=== PATIENT | male | born 1960 | race Caucasian/White ===

== ENCOUNTER → 2016-09-02 | Outpatient (CLI) | payer OTHER ==
[2016-09-02 09:24] LABS: ABG Base Excess 3.2 mmol/L; ABG HCO3 28 mmol/L (21-25); ABG PCO2 45 mmHg (35-45); ABG PH 7.41 (7.35-7.45); ABG PO2 77 mmHg (83-108); ABG TCO2 29 mmol/L (19-24)
[2016-09-02 09:29] LABS: CH 28.3; CHCM 31.1; HCT 47.5 % (39.0-53.0); HDW 2.91; HGB 14.9 gm/dL (13.0-17.5); Hypochromasia Slight; MCH 28.6 pg (25.0-35.0); MCHC 31.4 g/dL (31.0-37.0); MCV 91.3 fL (80.0-100.0); Mean Platelet Volume 7.5; RDW 15.8 % (11.5-15.5); WBC 8.5 k/uL (3.8-10.6)
--- NOTE | 2016-09-02 10:05 | CT ---
EXAMINATION TYPE: CT chest w con DATE OF EXAM: 09/02/2016 9:21 AM COMPARISON: 05/31/2016 HISTORY: 56-year-old male Shortness of Breath TECHNIQUE: Contiguous axial scanning of the chest after the administration of 100 mL of Omnipaque 300 . Coronal/sagittal reconstructions performed. CT DLP: 369.8mGycm. Automatic exposure control utilized for a dose reduction. FINDINGS: Heart is upper limits of normal in size without pericardial effusion. Coronary vessel calcifications are present and are remarkable for coronary artery disease. Ascending aorta phase mildly aneurysmal at 4.1 cm. Previous measurement was 3.9 cm. There is conventi onal arterial suppression anatomy. Scattered small mediastinal lymph nodes are seen. No thoracic lymphadenopathy by CT size criteria. There is mild centrilobular emphysema with a continued small pleural effusions though decreased in si ze on the left. There are persistent bands of opacity in the basilar left lower lobe. Large caliber to the main right and left pulmonary arteries at 3.0 and 2.6 cm, respectively, suggesti ng underlying pulmonary arterial hypertension. The left hemidiaphragm remains elevated. Patchy opacity medial right middle lobe is unchanged suggesting atelectasis or scarring. 2 subcentimeter hypodensities right hepatic lobe too small for accurate CT characterization, probable cysts. Focal fat stranding anterior to the gastric antrum likely postsurgical. Some nodular enhancing tissue in the left subphrenic region probably posttraumatic splenules, axial image 44. Patient is status po st splenectomy with improvement in the fluid and fat stranding in the left upper quadrant. Bones: Well healed fractures of the left posterior and posterolateral 10th and 11th ribs with the 10t h rib fracture being segmental. No osseous destructive process. IMPRESSION: 1. Continued elevation of the left hemidiaphragm with similar patchy left basilar opacity, probably r epresenting scarring and atelectasis. 2. Small bilateral pleural effusions, decreased on the left. 3. Status post splenectomy with residual but decreasing strandy densities in the left subphrenic latanya on and left upper quadrant. Probably gradually involuting postsurgical and posttraumatic changes. Daniel e enhancing nodules below the left hemidiaphragm probably represent residual splenic tissue. 4. Mildly aneurysmal ascending aorta at 4.1 cm and pulmonary arterial hypertension. 5. The left 10th and 11th rib fractures are now well healed.
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
== END | disposition home or self-care (01) ==
LOC: RADCTMAIN 08:34
PROVIDERS: ATTEND Internal Medicine
DX: J90 Pleural effusion, not elsewhere classified (principal); J98.6 Disorders of diaphragm; R91.8 Other nonspecific abnormal finding of lung field; I71.2 Thoracic aortic aneurysm, without rupture; I27.2 Other secondary pulmonary hypertension; Z90.81 Acquired absence of spleen; D64.9 Anemia, unspecified; R06.02 Shortness of breath
CPT/HCPCS: 36600; 82805; 85027; 76000; 71260; Q9967

== ENCOUNTER → 2020-02-17 | Outpatient (CLI) | payer MEDICARE, OTHER ==
--- NOTE | 2020-02-17 11:04 | MR ---
EXAMINATION TYPE: MR knee LT wo con DATE OF EXAM: 02/17/2020 COMPARISON: Plain film 01/28/2020 HISTORY: L knee pain TECHNIQUE: Multiplanar, multisequence imaging of the left knee is performed without IV contrast. FINDINGS: MEDIAL MENISCUS: Posterior horn of the medial meniscus shows linear increased signal which extends to the undersurface and into the body and shows a somewhat stellate configuration. LATERAL MENISCUS: Anterior and posterior horns are intact without tear. CRUCIATE LIGAMENTS: The anterior and posterior cruciate ligaments are intact and unremarkable. COLLATERAL LIGAMENTS: The medial collateral ligament and lateral collateral ligament complex are inta ct and unremarkable. EXTENSOR MECHANISM: Visualized quadriceps and patellar tendons are intact. EFFUSION: No significant suprapatellar joint effusion. POPLITEAL CYST: No popliteal/morejon cyst. TRICOMPARTMENT SPACES: Maintained CARTILAGE: Well-preserved BONE MARROW SIGNAL: No focal abnormal marrow signal is appreciated. OTHER: No additional significant abnormality is appreciated. IMPRESSION: Tear the posterior horn of the medial meniscus.
== END | disposition home or self-care (01) ==
LOC: RADMRIMAIN 07:25
PROVIDERS: ATTEND Orthopaedic Surgery
DX: S83.242A Other tear of medial meniscus, current injury, left knee, initial encounter (principal)

== ENCOUNTER → 2020-03-05 | Outpatient (CLI) | payer MEDICARE, OTHER ==
[2020-03-05 09:06] LABS: Basophils % (A) 0 %; Eosinophils # (A) 0.2 k/uL (0-0.7); Eosinophils % (A) 2 %; HCT 46.8 % (39.0-53.0); HGB 15.2 gm/dL (13.0-17.5); Lymphocytes # (A) 1.6 k/uL (1.0-4.8); Lymphocytes % (A) 23 %; MCH 31.3 pg (25.0-35.0); MCHC 32.5 g/dL (31.0-37.0); MCV 96.1 fL (80.0-100.0); Mean Platelet Volume 7.1; Monocytes # (A) 0.5 k/uL (0-1.0); Monocytes % (A) 8 %; Neutrophils # (A) 4.5 k/uL (1.3-7.7); Neutrophils % (A) 64 %; Platelet Count 319 k/uL (150-450); RBC 4.87 m/uL (4.30-5.90); RDW 13.1 % (11.5-15.5)
[2020-03-05 09:14] LABS: Potassium 4.4 mmol/L (3.5-5.1)
== END | disposition home or self-care (01) ==
LOC: LABPAT 07:59
PROVIDERS: ATTEND Orthopaedic Surgery
DX: Z01.818 Encounter for other preprocedural examination (principal); M23.92 Unspecified internal derangement of left knee
CPT/HCPCS: 36415; 80051; 85025; 93005

== ENCOUNTER 2020-03-12 11:43 | Day surgery (SDC) | payer MEDICARE, OTHER ==
[2020-03-06 14:35] VITALS: BMI 31.6
--- NOTE | 2020-03-11 16:59 | HP ---
HISTORY AND PHYSICAL DATE OF SURGERY: 03/12/2020 Noe Oakes is a 60-year-old patient seen with progressive left knee pain. We discussed options for treatment. He elected to proceed with arthroscopy. Consent was obtained. PAST MEDICAL HISTORY: Hyperlipidemia, gastroesophageal reflux disease, asthma. PAST SURGICAL HISTORY: Noncontributory. DAILY MEDICATIONS: Aspirin, omeprazole, pravastatin, Ventolin inhaler. ALLERGIES: NONE. SOCIAL HISTORY: He denies tobacco use. PHYSICAL EVALUATION OF THE LEFT KNEE: His range of motion is negative 3 to 120. He has a mild effusion present. Tenderness, medial joint line. Positive medial Favian's. Ligaments stable. Hip rotation without pain. Distal neurovascular exam intact. RADIOGRAPHS: Radiographs of the left knee revealed mild osteoarthritic changes. An MRI of the left knee revealed a medial meniscal tear. IMPRESSION: 1. Internal derangement of the left knee with medial meniscal tear. 2. Hyperlipidemia. 3. Gastroesophageal reflux disease. 4. Asthma. PLAN: Left knee arthroscopy with partial meniscectomy and partial synovectomy and debridement. MMODL / IJN: [id number] /
[~2020-03-12 11:43] MED LIST: LACTATED RINGERS 1,000 ML IV SCH; ONDANSETRON 4 MG/2 ML VIAL IVP ONE; fentaNYL (PF) 50 MCG/ML 2 ML AMP IV PRN
[2020-03-12] MEDS ORDERED: LIDOCAINE 1% (10MG/ML) FOR IV START IV ONE (12:20)
[2020-03-12] MEDS ORDERED: DEXAMETHASONE SOD PHOSPHATE 10 MG/ML 1 ML VIAL IV ONE (12:25)
[2020-03-12] MEDS ORDERED: ONDANSETRON 4 MG/2 ML VIAL ONE (12:35)
[2020-03-12] MEDS ORDERED: PROPOFOL 10 MG/ML 20 ML VIAL IV ONE (13:13)
[2020-03-12] MEDS ORDERED: fentaNYL (PF) 50 MCG/ML 2 ML AMP ONE (13:13)
[2020-03-12] MEDS ORDERED: MIDAZOLAM 2 MG/2 ML VIAL ONE (13:13)
[2020-03-12] MEDS ORDERED: BUPIVACAIN-EPI 0.25%-1:200,000 30 ML VIAL INTRAARTIC ONE (13:18)
--- NOTE | 2020-03-12 14:09 | P.OP ---
Date of Procedure: 03/12/20 Preoperative Diagnosis: Internal derangement left knee Postoperative Diagnosis: 1. Tear lateral meniscus left knee 2. Grade 2 chondromalacia medial femoral condyle left knee 3. Reactive synovitis medial, lateral and suprapatellar compartments left knee Procedure(s) Performed: 1. Arthroscopic partial lateral meniscectomy left knee 2. Arthroscopic chondroplasty medial femoral condyle left knee 3. Arthroscopic partial synovectomy medial, lateral and suprapatellar compartments left knee Anesthesia: local, spinal Surgeon: Henrik De Souza Estimated Blood Loss (ml): 6 Pathology: none sent Condition: stable Disposition: PACU Indications for Procedure: 60-year-old patient seen with progressive left knee pain. After treatment options were discussed, he elected to proceed with arthroscopy. Operative Findings: See description of procedure Description of Procedure: Patient was taken to the operative suite. Patient underwent a general anesthetic by the department of anesthesia. Patient was given preoperative antibiotics. The left lower extremity was placed in a well-padded arthroscopic leg sullivan. The left leg was prepped and draped in the normal sterile orthopedic fashion. A lateral parapatellar and suprapatellar incision was made. Trochars were inserted. Arthroscopy was initiated. Suprapatellar pouch revealed diffuse thick reactive synovitis. The patellofemoral joint appeared to articulate congruently. There with grade 3/4 chondromalacia of the patella with no osteochondral tears present. The scope was guided into the medial gutter. No loose bodies or plica were identified. The scope was then guided into the medial compartment. A medial parapatellar incision was made. Trocar inserted followed by probe. There were grade 2 chondromalacia changes along the weightbearing surface medial femoral condyle some osteochondral flap tears present. There was thick reactive synovitis anteriorly. The meniscus was probed and found to be stable. I performed a chondroplasty of the medial femor al condyle. I performed a partial synovectomy decompressing reactive synovitis. The residual osteochondral surface appears stable. There was good decompression of synovitis. Scope and probe were then guided into the intercondylar notch. Cruciates were identified, probed and found to be stable. The scope and probe were then guided into lateral compartment. There was a radial tear posterior horn lateral meniscus. There was no significant chondromalacia in the lateral compartment. There was some reactive synovitis anteriorly. I performed a partial lateral meniscectomy getting down to stable meniscal tissue. I performed a partial synovectomy decompressing reactive synovitis. The residual meniscus was stable. There was good decompression of synovitis. The scope was in guided back into the suprapatellar compartment. I introduced a motorized shaver into the suprapatellar compartment. I debrided some piecemeal fragments of meniscus I encountered. I performed a partial synovectomy decompressing reactive synovitis. The shaver was removed. There was good decompression of synovitis. I took more look on the entire knee, no residual debris. Instruments were now removed from the joint. The joint was infiltrated with .25% Marcaine. Steri-Strips were applied to the portal sites. Sterile dressings were applied. The patient was placed into a LUKAS hose. No tourniquet was utilized. The patient was awakened, transferred to a bed and taken to recovery stable satisfactory condition.
[2020-03-12 14:13] VITALS: TEMP 97.6
[2020-03-12 16:27] VITALS: BP 147/65; PULSE 85; RESP 20
== END 2020-03-12 17:54 | disposition home or self-care (01) ==
LOC: OR 11:43
PROVIDERS: ATTEND Orthopaedic Surgery
DX: S83.282A Other tear of lateral meniscus, current injury, left knee, initial encounter (principal); X58.XXXA Exposure to other specified factors, initial encounter; M94.262 Chondromalacia, left knee; M65.9 Synovitis and tenosynovitis, unspecified; E78.5 Hyperlipidemia, unspecified; K21.9 Gastro-esophageal reflux disease without esophagitis; J45.909 Unspecified asthma, uncomplicated; J98.6 Disorders of diaphragm; N40.0 Benign prostatic hyperplasia without lower urinary tract symptoms; Z98.890 Other specified postprocedural states; Z79.82 Long term (current) use of aspirin; Z79.899 Other long term (current) drug therapy
CPT/HCPCS: 29881; J2250; J1100; J0690; J2405; J3010; J2704

== ENCOUNTER → 2020-05-07 | Outpatient (CLI) | payer MEDICARE, OTHER ==
[2020-05-07 08:53] LABS: Basophils % (A) 1 %; Eosinophils # (A) 0.2 k/uL (0-0.7); Eosinophils % (A) 3 %; HCT 49.1 % (39.0-53.0); HGB 15.2 gm/dL (13.0-17.5); Hypochromasia Slight; Lymphocytes # (A) 1.6 k/uL (1.0-4.8); Lymphocytes % (A) 21 %; MCV 96.6 fL (80.0-100.0); Mean Platelet Volume 6.8; Monocytes # (A) 0.5 k/uL (0-1.0); Monocytes % (A) 7 %; Neutrophils # (A) 5.1 k/uL (1.3-7.7); Neutrophils % (A) 66 %; Platelet Count 317 k/uL (150-450); RBC 5.09 m/uL (4.30-5.90); RDW 13.5 % (11.5-15.5); WBC 7.8 k/uL (3.8-10.6)
[2020-05-07 08:58] LABS: Potassium 4.9 mmol/L (3.5-5.1)
== END | disposition home or self-care (01) ==
LOC: LABPAT 08:14
PROVIDERS: ATTEND Orthopaedic Surgery
DX: Z01.818 Encounter for other preprocedural examination (principal); M23.91 Unspecified internal derangement of right knee
CPT/HCPCS: 36415; 80051; 85025

== ENCOUNTER 2020-05-14 07:54 | Day surgery (SDC) | payer MEDICARE, OTHER ==
[2020-05-13 08:48] VITALS: BMI 31.6
--- NOTE | 2020-05-13 19:34 | HP ---
HISTORY AND PHYSICAL DATE OF SURGERY: 05/14/2020 Noe Oakes is a 60-year-old patient seen with progressive right knee pain. Treatment options were discussed with him. He elected to proceed with arthroscopy. Consent regarding the procedure was obtained. PAST MEDICAL HISTORY: Hypertension, hyperlipidemia, asthma. PAST SURGICAL HISTORY: Left knee arthroscopy. DAILY MEDICATIONS: Aspirin, omeprazole, pravastatin, Ventolin inhaler. ALLERGIES: NONE. SOCIAL HISTORY: He denies current tobacco use. PHYSICAL EVALUATION OF RIGHT KNEE: His range of motion is -3 to 110. There is a mild effusion. Tenderness, medial joint line. Positive medial Favian's. Ligaments stable. Hip rotation without pain. Distal neurovascular exam intact. RADIOGRAPHS: Right knee radiographs revealed mild osteoarthritic changes. IMPRESSION: 1. Internal derangement of right knee with medial meniscal tear. 2. Hyperlipidemia. 3. Asthma. PLAN: Right knee arthroscopy with partial meniscectomy, partial synovectomy and debridement. MMODL / IJN: [id number] /
[~2020-05-14 07:54] MED LIST changes: +DEXAMETHASONE SOD PHOSPHATE 10 MG/ML 1 ML VIAL IV ONE; +HYDROmorphone 0.5 MG/0.5 ML SYRINGE IVP PRN; -LACTATED RINGERS 1,000 ML IV SCH; +LIDOCAINE 1% (10MG/ML) FOR IV START INTRADERMA PRN; -ONDANSETRON 4 MG/2 ML VIAL IVP ONE; +ONDANSETRON 4 MG/2 ML VIAL IVP PRN; -fentaNYL (PF) 50 MCG/ML 2 ML AMP IV PRN
[2020-05-14] MEDS: LACTATED RINGERS 1,000 ML IV SCH ×2 (08:31→11:15)
[2020-05-14] MEDS ORDERED: SUCCINYLCHOLINE CHLORIDE 100 MG/5 ML SYR IV ONE (09:32)
[2020-05-14] MEDS ORDERED: fentaNYL (PF) 50 MCG/ML 2 ML AMP ONE (09:32)
[2020-05-14] MEDS ORDERED: KETOROLAC 15 MG/ML 1 ML VIAL ONE (09:32)
[2020-05-14] MEDS ORDERED: BUPIVACAINE (PF) 0.25% 30 ML VIAL INTRAARTIC ONE (09:32)
[2020-05-14] MEDS ORDERED: PROPOFOL 10 MG/ML 20 ML VIAL IV ONE (09:32)
[2020-05-14] MEDS ORDERED: MIDAZOLAM 2 MG/2 ML VIAL ONE (09:32)
--- NOTE | 2020-05-14 10:29 | P.OP ---
Date of Procedure: 05/14/20 Preoperative Diagnosis: Internal derangement right knee Postoperative Diagnosis: 1. Tear lateral meniscus right knee 2. Reactive synovitis medial, lateral and suprapatellar compartments right knee Procedure(s) Performed: 1. Arthroscopic partial lateral meniscectomy right knee 2. Arthroscopic partial synovectomy medial, lateral and suprapatellar compartments right knee Anesthesia: KAYLAN, local Surgeon: Henrik De Souza Estimated Blood Loss (ml): 6 Pathology: none sent Condition: stable Disposition: PACU Indications for Procedure: 60-year-old patient seen with progressive right knee pain. After treatment options were discussed, he elected to proceed with arthroscopy. Operative Findings: See description of procedure Description of Procedure: Patient was taken to the operative suite. Patient underwent a general ane sthetic by the department of anesthesia. Patient was given preoperative antibiotics. The right lower extremity was placed in a well-padded arthroscopic leg sullivan. The right leg was prepped and draped in the normal sterile orthopedic fashion. A lateral parapatellar and suprapatellar incision was made. Trochars were inserted. Arthroscopy was initiated. Suprapatellar pouch revealed diffuse thick reactive synovitis. The patellofemoral joint appeared to articulate congruently. There grade 1/2 chondromalacia with no osteochondral tears present involving both the patella and femoral sulcus. The scope was guided into the medial gutter. No loose bodies or plica were identified. The scope was then guided into the medial compartment. A medial parapatellar incision was made. Trocar inserted followed by probe. The medial meniscus was probed and found to be stable. There was area of grade 1 chondromalacia medial femoral condyle with a very small osteochondral tear present. There was thick reactive synovitis anteriorly. A motorize shaver was introduced and a chondroplasty of the medial femoral condyle was performed. I performed a partial synovectomy decompressing reactive synovitis. The residual osteochondral surface was stable. There was good decompression synovitis. Scope and probe were then guided into the intercondylar notch. Cruciates were identified, probed and found to be stable. The scope and probe were then guided into lateral compartment. There was a radial tear posterior horn lateral meniscus. There was no significant chondromalacia. There was thick reactive synovitis anteriorly. I performed a partial lateral meniscectomy. I performed a synovectomy decompressing reactive some-itis. The residual meniscus was stable. There was good decompression of the synovitis. The scope was in guided back into the suprapatellar compartment. I introduced a motorized shaver into the super compartment. I debrided some piecemeal fragments of meniscus I en countered. I performed a partial synovectomy decompressing the reactive synovitis. There was good decompression synovitis.. The shaver was removed. I took one more look on the entire knee, no residual debris. Instruments were now removed from the joint. The joint was infiltrated with .25% Marcaine. Steri- Strips were applied to the portal sites. Sterile dressings were applied. The patient was placed into a LUKAS hose. No tourniquet was utilized. The patient was awakened, transferred to a bed and taken to recovery stable satisfactory condition.
[2020-05-14 10:37] VITALS: TEMP 97.7
[2020-05-14 10:48] VITALS: RESP 16
[2020-05-14 12:10] VITALS: BP 128/68; PULSE 80
== END 2020-05-14 12:35 | disposition home or self-care (01) ==
LOC: OR 07:54
PROVIDERS: ATTEND Orthopaedic Surgery
DX: M23.251 Derangement of posterior horn of lateral meniscus due to old tear or injury, right knee (principal); M65.861 Other synovitis and tenosynovitis, right lower leg; M94.261 Chondromalacia, right knee; E78.5 Hyperlipidemia, unspecified; I10 Essential (primary) hypertension; J44.9 Chronic obstructive pulmonary disease, unspecified; M19.90 Unspecified osteoarthritis, unspecified site; F41.9 Anxiety disorder, unspecified; K21.9 Gastro-esophageal reflux disease without esophagitis; Z87.891 Personal history of nicotine dependence; Z79.899 Other long term (current) drug therapy; Z90.81 Acquired absence of spleen; Z79.82 Long term (current) use of aspirin
CPT/HCPCS: 29881; J2250; J1100; J0690; J2405; J3010; J1885; J0330; J2704

== ENCOUNTER → 2022-08-03 | Outpatient (CLI) | payer MEDICARE, OTHER ==
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
== END | disposition home or self-care (01) ==
LOC: RADCTMAIN 17:07
PROVIDERS: ATTEND Internal Medicine Critical Care Medicine
DX: J98.4 Other disorders of lung (principal); J98.6 Disorders of diaphragm; J98.11 Atelectasis; Z87.81 Personal history of (healed) traumatic fracture
CPT/HCPCS: 71260; Q9967

== ENCOUNTER 2025-01-25 05:34 | Inpatient (IN) | payer MEDICARE, OTHER ==
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
[2025-01-25 06:23] LABS: Basophils # (A) 0.04 10*3/uL (0.00-0.10); Basophils % (A) 0.2 %; Eosinophils # (A) 0.05 10*3/uL (0.04-0.35); Eosinophils % (A) 0.3 %; HCT 51.2 % (39.6-50.0); HGB 16.3 g/dL (13.0-17.0); Lymphocytes % (A) 7.1 %; MCH 30.9 pg (27.0-32.0); MCHC 31.8 g/dL (32.0-37.0); MCV 97.2 fL (80.0-97.0); Monocytes # (A) 0.75 10*3/uL (0.20-1.00); Monocytes % (A) 4.4 %; Neutrophils # (A) 14.79 10*3/uL (1.80-7.70); Neutrophils % (A) 87.7 %; Platelet Count 289 10*3/uL (140-440); RBC 5.27 10*6/uL (4.40-5.60); RDW 13.2 % (11.5-14.5); WBC 16.88 10*3/uL (4.50-10.00)
[2025-01-25 06:42] LABS: Partial Thromboplastin Time 22.2 sec (22.0-30.0); Prothrombin Time 11.5 sec (10.0-12.5)
[2025-01-25 06:52] LABS: ALT 22 U/L (4-49); African American GFR (CKD) >90 (>60 ml/min/1.73 sqM); Albumin 4.7 g/dL (3.5-5.0); Anion Gap 12 mmol/L; Blood Urea Nitrogen 17 mg/dL (9-20); Calcium 9.9 mg/dL (8.4-10.2); Carbon Dioxide 29 mmol/L (22-30); Chloride 99 mmol/L (98-107); Glucose 118 mg/dL (74-99); Non-African American GFR(CKD) >90 (>60 ml/min/1.73 sqM); Sodium 140 mmol/L (137-145); Total Protein 7.7 g/dL (6.3-8.2)
[2025-01-25 06:58] LABS: NT-Pro-B-Type Natriuretic Pept <20 pg/mL
--- NOTE | 2025-01-25 07:04 | XR ---
EXAMINATION TYPE: XR chest 2V DATE OF EXAM: 01/25/2025 6:31 AM COMPARISON: 07/31/2060 CLINICAL INDICATION: Male, 65 years old with history of Chest Pain, TECHNIQUE: XR chest 2V view(s) obtained. FINDINGS: The heart size is normal. The pulmonary vasculature is somewhat prominent. There is a consolidation right.. Right lower lobe infiltrate is present. Some blunting right costophr enic angle suggests minimal effusion. Retrocardiac infiltrate. IMPRESSION: 1. Right perihilar infiltrate with milder lower lobe infiltrates. Correlate for pneumonia. The recomm ended. [facility], , 01/25/2025 7:02 AM
[2025-01-25] MEDS ORDERED: PNEUMONIA PROTOCOL UTILIZED 1 EACH MISC PO PRN (07:05)
[2025-01-25 07:22] LABS: AST 32 U/L (17-59); Alkaline Phosphatase 68 U/L (38-126); Magnesium 1.6 mg/dL (1.6-2.3); Potassium 5.3 mmol/L (3.5-5.1)
[2025-01-25] MEDS ORDERED: VANCOMYCIN IV PER PHARMACY 1 EACH MISC MISCELLANE PRN (09:57)
[2025-01-25] MEDS: AZITHROMYCIN 500 MG in SODIUM CHLORIDE 0.9% 250 ML IVPB STA (10:04)
--- NOTE | 2025-01-25 11:26 | CT ---
EXAMINATION TYPE: CT chest wo con DATE OF EXAM: 01/25/2025 10:37 AM COMPARISON: 08/03/2022 CLINICAL INDICATION: Male, 65 years old with history of pneumonia, Pneumonia TECHNIQUE: Axial images were obtained at 5 mm thick sections. Reconstructed images are reviewed on [employer] computer in the coronal plane. Contrast used: mL of , (none if empty) Oral contrast used: (none if empty) CT DLP: 543.6 mGycm, Automated exposure control for dose reduction was used. FINDINGS: Portion of the thyroid visualized is normal. Left lower lobe infiltrate and patchy consolidations. Some mild infiltrates in the right midlung nichol hilar region as well. Correlate for pneumonia. Consider atypical pneumonia. No enlarged mediastinal or hilar adenopathy is evident. The ascending aorta diameter at the level o f the main pulmonary artery is 4.6 cm. This is a change from 2021 The main pulmonary artery diameter at the bifurcation is 3.7 cm. No significant coronary artery calcifications. Limited CT sections are obtained through the upper abdomen. Cysts in the superior posterior right lob e liver IMPRESSION: 1. New aneurysmal dilatation of ascending thoracic aorta 4.6 cm. This tapers through the aortic arch and descending thoracic aorta which have normal caliber. 2. Left lower lobe and right midlung patchy infiltrates and consolidations. Correlate for pneumonia. Consider atypical pneumonia. Follow-up can be performed. [facility], , 01/25/2025 11:24 AM
[2025-01-25] MEDS: CEFEPIME 2 GM in SODIUM CHLORIDE 0.9% 100 ML IVPB SCH (11:46)
[2025-01-25] MEDS: VANCOMYCIN 1,750 MG in SODIUM CHLORIDE 0.9% 500 ML 500 ML IVPB ONE (12:26)
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
[2025-01-25] MEDS: traZODone HCL 50 MG TAB PO SCH (20:26)
[2025-01-25] MEDS: VANCOMYCIN 1,750 MG in SODIUM CHLORIDE 0.9% 500 ML 500 ML IVPB SCH (20:26)
[2025-01-25] MEDS: PRAVASTATIN SODIUM 20 MG TAB PO SCH (20:26)
[2025-01-25] MEDS: MONTELUKAST 10 MG TAB PO SCH (20:26)
[2025-01-26] MEDS: PANTOPRAZOLE 40 MG TABLET PO SCH (06:17)
[2025-01-26 07:58] LABS: Basophils # (A) 0.04 10*3/uL (0.00-0.10); Basophils % (A) 0.3 %; Eosinophils # (A) 0.17 10*3/uL (0.04-0.35); Eosinophils % (A) 1.2 %; HCT 44.5 % (39.6-50.0); Lymphocytes % (A) 11.5 %; MCH 30.6 pg (27.0-32.0); MCHC 31.5 g/dL (32.0-37.0); MCV 97.4 fL (80.0-97.0); Mean Platelet Volume 9.3 fL (9.5-12.2); Monocytes # (A) 1.18 10*3/uL (0.20-1.00); Neutrophils # (A) 11.62 10*3/uL (1.80-7.70); Neutrophils % (A) 78.6 %; Platelet Count 257 10*3/uL (140-440); RBC 4.57 10*6/uL (4.40-5.60); RDW 13.3 % (11.5-14.5); WBC 14.77 10*3/uL (4.50-10.00)
[2025-01-26 08:11] LABS: African American GFR (CKD) >90 (>60 ml/min/1.73 sqM); Anion Gap 7 mmol/L; Blood Urea Nitrogen 17 mg/dL (9-20); Calcium 9.1 mg/dL (8.4-10.2); Carbon Dioxide 27 mmol/L (22-30); Chloride 104 mmol/L (98-107); Glucose 112 mg/dL (74-99); Non-African American GFR(CKD) >90 (>60 ml/min/1.73 sqM); Potassium 4.3 mmol/L (3.5-5.1); Sodium 138 mmol/L (137-145)
[2025-01-26] MEDS: SYMBICORT 160-4.5 MCG INHALER INHALATION SCH (08:24)
[2025-01-26] MEDS: TIOTROPIUM 2.5 MCG INHALER INHALATION SCH (08:24)
[2025-01-26] MEDS: FLUoxetine HCL 20 MG CAP PO SCH (08:33)
[2025-01-26] MEDS: CYANOCOBALAMIN 500 MCG TAB PO SCH (08:33)
[2025-01-26] MEDS: AZITHROMYCIN 500 MG in SODIUM CHLORIDE 0.9% 250 ML IVPB SCH (08:33)
[2025-01-26] MEDS: ASPIRIN 81 MG PO SCH (08:33)
[2025-01-26] MEDS: ASCORBIC ACID 500 MG TAB PO SCH (08:33)
[2025-01-26] MEDS: TAMSULOSIN 0.4 MG CAP.ER.24H PO SCH (08:33)
[2025-01-26] MEDS: CEFEPIME 2 GM in SODIUM CHLORIDE 0.9% 100 ML IVPB SCH (08:33)
--- NOTE | 2025-01-26 10:03 | XR ---
EXAMINATION TYPE: XR chest 2V DATE OF EXAM: 01/26/2025 7:12 AM COMPARISON: 01/25/2025 CLINICAL INDICATION: Male, 65 years old with history of pneumonia, TECHNIQUE: XR chest 2V view(s) obtained. FINDINGS: The heart size is normal. The pulmonary vasculature is normal. There is a right midlung infiltrate. Correlate for pneumonia. Milder right lower lobe infiltrate is p resent. IMPRESSION: 1. Stable right lung infiltrates. Correlate for pneumonia. Continued follow-up recommended. [facility], , 01/26/2025 10:00 AM
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
[2025-01-27] MEDS: VANCOMYCIN TROUGH DUE 1 EACH MISC MISCELLANE ONE (03:19)
[2025-01-27 07:58] LABS: Basophils # (A) 0.04 X 10*3/uL (0.00-0.10); Basophils % (A) 0.4 %; Eosinophils # (A) 0.21 X 10*3/uL (0.04-0.35); HCT 44.6 % (39.6-50.0); HGB 13.7 g/dL (13.0-17.0); Lymphocytes # (A) 1.69 X 10*3/uL (0.90-5.00); Lymphocytes % (A) 16.4 %; MCH 30.7 pg (27.0-32.0); MCHC 30.7 g/dL (32.0-37.0); Mean Platelet Volume 9.7 FL (9.5-12.2); Monocytes # (A) 1.14 X 10*3/uL (0.20-1.00); Monocytes % (A) 11.1 %; NRBC Per 100 WBC 0 X 10*3/uL (0.00-0.01); Neutrophils # (A) 7.19 X 10*3/uL (1.80-7.70); Neutrophils % (A) 69.8 %; Platelet Count 256 X 10*3/uL (140-440); RBC 4.46 X 10*6/uL (4.40-5.60); RDW 13.2 % (11.5-14.5)
[2025-01-27 08:15] LABS: BUN/Creat Ratio 20.67 Ratio (12.00-20.00); Blood Urea Nitrogen 12.4 mg/dL (9.0-27.0); Calcium 8.6 mg/dL (8.7-10.3); Chloride 106 mmol/L (96-109); Glucose 113 mg/dL (70-110); Potassium 4.3 mmol/L (3.5-5.5); Sodium 141 mmol/L (135-145)
[2025-01-27 10:39] LABS: Influenza A Not Detected (Not Detectd); Influenza B Not Detected (Not Detectd); RSV Not Detected (Not Detectd)
--- NOTE | 2025-01-27 13:06 | PN ---
PROGRESS NOTE DATE OF SERVICE: 01/27/2025 SUBJECTIVE: This is a 65-year-old gentleman admitted with bilateral pneumonia, also had acute hypoxic respiratory failure on presentation. The patient is on broad-spectrum IV antibiotics. White count is slightly elevated. The patient still has some cough at this time. The patient is on IV cefepime. PAST MEDICAL HISTORY: Reviewed. REVIEW OF SYSTEMS: A 14-point review of systems is negative except as mentioned earlier. CURRENT MEDICATIONS: Reviewed. PHYSICAL EXAMINATION: VITAL SIGNS: Pulse is 65, blood pressure 140/70, and respirations 18. CHEST: Few scattered rhonchi and crackles. ABDOMEN: Soft. NERVOUS SYSTEM: No focal deficit. LABORATORY DATA: WBC 10.03, rest of the labs are noted. ASSESSMENT: 1. Bilateral pneumonia possibly aspiration. 2. Acute hypoxic respiratory failure secondary to pneumonia. 3. History of traumatic left diaphragmatic rupture. 4. History of splenectomy. 5. Hyperlipidemia. 6. Asthma. 7. Chronic obstructive pulmonary disease. 8. Multiple medical issues. RECOMMENDATIONS: Recommend to continue current management and continue symptomatic treatment. Continue the broad-spectrum IV antibiotics. Cultures are negative so far. We will continue to monitor. Continue with bronchodilators, closely follow with Pulmonary. I will repeat a chest x-ray tomorrow. Further recommendations to follow. Proton pump inhibitors. MMODL / IJN: [id number] /
[2025-01-27] MEDS: MULTIVITAMINS, THERA 1 EACH TAB PO SCH (13:56)
[2025-01-27] MEDS: THIAMINE 100 MG TAB PO SCH (13:56)
[2025-01-27] MEDS: FOLIC ACID 1 MG TAB PO SCH (13:56)
[2025-01-27] MEDS: IPRATROPIUM-ALBUTEROL 3 ML NEB INHALATION SCH (14:42)
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
[2025-01-28 08:15] LABS: HGB 13.2 g/dL (13.0-17.0); MCH 30.9 pg (27.0-32.0); MCHC 31.4 g/dL (32.0-37.0); MCV 98.4 FL (80.0-97.0); Mean Platelet Volume 9.6 FL (9.5-12.2); NRBC Per 100 WBC 0 X 10*3/uL (0.00-0.01); Platelet Count 266 X 10*3/uL (140-440); RBC 4.27 X 10*6/uL (4.40-5.60); RDW 13.2 % (11.5-14.5); WBC 10.18 X 10*3/uL (4.50-10.00)
[2025-01-28 08:16] LABS: Basophils # (A) 0.03 X 10*3/uL (0.00-0.10); Basophils % (A) 0.3 %; Lymphocytes # (A) 1.91 X 10*3/uL (0.90-5.00); Lymphocytes % (A) 18.8 %; Monocytes # (A) 1.01 X 10*3/uL (0.20-1.00); Monocytes % (A) 9.9 %; Neutrophils % (A) 68.7 %
[2025-01-28 08:44] LABS: BUN/Creat Ratio 18.57 Ratio (12.00-20.00); Carbon Dioxide 26.1 mmol/L (21.6-31.8); Chloride 102 mmol/L (96-109); Glucose 94 mg/dL (70-110); Potassium 4.2 mmol/L (3.5-5.5); Sodium 139 mmol/L (135-145)
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
--- NOTE | 2025-01-28 14:02 | CDI ---
Documentation Clarification Form Date: 01/28/2025 12:55:32 PM From: Tomasa Kessler RN, CCDS Phone: [phone] Admit Date: 01/25/2025 07:05:00 AM Patient Name: Noe Oakes Visit Number: [id number] Discharge Date: ATTENTION: The Clinical Documentation Specialists (CDI) and [facility] Coding Staff appreciate your assistance in clarifying documentation. Please respond to the clarification below the line at the bottom and electronically sign. The CDI & [facility] Coding staff will review the response and follow-up if needed. Please note: Queries are made part of the Legal Health Record. If you have any questions, please contact the author of this message via ITS. Dr. Magnus Guzman Acute Hypoxic Respiratory Failure is documented in the Medicine H/P and progress notes, Pulmonary Consult and subsequent progress notes which may lack sufficient clinical evidence/support in the medical record. Additional clarification is requested. Patient history/risk factors: Splenectomy Clinical Indicators: 65-year-old male present with worsening shortness of breath and chest discomfort along the left lateral chest wall. 67 ER Evaluation: Alert and oriented x3 not in acute distress. Chest: Able to complete full sentences, no retractions, no tachypenia, lungs clear to auscultation bilaterally. 6/7 CXR: consolidation consistent with pneumonia. / Chest CT: New aneurysmal dilatation of ascending thoracic aorta 4.6 cm. Left lower lobe and right midlung patchy infiltrates and consolidations. Correlate for pneumonia. Consider atypical pneumonia 01/25 VS: (09:00 117/70 105 17 93% 2/L 01/25 VS (11:44) 113/77 97 20 94% 2/L 6/7 Labs: WBC 16.88, Procalcitonin <0.20 6/ Pulmonary consult: No significant respiratory distress. Lungs a clear diminished and bibasilar crackles are appreciated. Neck is without jugular venous distension. Bilateral lobe pneumonia with areas of patchy consolidation lung base. Acute hypoxic respiratory failure. Treatment: Maxipime 2GM IVPB Q 12HRS 6/7 >8 HRS 8-01/28 Vancomycin HCl 1,750 MG IVPB Once 6/7>Q 8 HRS 6/7-01/27 (PTD) Rocephin 2 GM IVPB 6/7-01/26 After work up and study, please clarify which diagnosis is most appropriate? [ ] Acute Hypoxic Respiratory Failure ruled out [ ] Acute Hypoxic Respiratory Failure is a valid diagnosis as evidenced by the following: [ ] Respiratory Insufficiency [ ] Unable to determine [ ] Other, please specify (Template Last Revised: August 2023) None MTDD
--- NOTE | 2025-01-28 14:41 | PN ---
PROGRESS NOTE DATE OF SERVICE: 01/28/2025 SUBJECTIVE: This is a 65-year-old gentleman, was admitted with bilateral pneumonia, possibly aspiration, is improving significantly. Most recent chest x-ray done today, which I reviewed personally showed some improvement. The patient on bronchodilators, multiple consultants are following the patient closely. The patient is on empiric antibiotics also. The cultures are negative so far. PAST MEDICAL HISTORY: Reviewed. REVIEW OF SYSTEMS: A 14-point review of systems negative except as mentioned earlier. CURRENT MEDICATIONS: Reviewed. PHYSICAL EXAMINATION: VITAL SIGNS: Pulse 72, blood pressure 126/80, and respirations 18. HEENT: Conjunctivae normal. NECK: No jugular venous distention. CARDIOVASCULAR: S1, S2. RESPIRATIONS: Bilateral scattered rhonchi and crackles. ABDOMEN: Soft. NERVOUS SYSTEM: Nonfocal. LABORATORY DATA: Reviewed. ASSESSMENT: 1. Bilateral pneumonia possibly aspiration. 2. Acute hypoxic respiratory failure secondary to pneumonia present on admission. 3. History of traumatic left diaphragmatic rupture history. 4. History of splenectomy. 5. Hyperlipidemia. 6. History of asthma. 7. Chronic obstructive pulmonary disease. 8. Multiple medical issues. RECOMMENDATIONS AND DISCUSSION: Recommend to continue current management and continue symptomatic treatment. Otherwise, continue with bronchodilators. The patient is currently on cefepime and bronchodilators. I would recommend repeat labs in the morning. Closely follow with Pulmonary. Prognosis guarded, because of multiple complex medical issues. Further recommendations to follow. See orders for details. Prognosis guarded. Discussed with the patient at length. MMODL / IJN: [id number] /
[2025-01-29] MEDS: IPRATROPIUM-ALBUTEROL 3 ML NEB INHALATION PRN (07:56)
[2025-01-29 07:58] VITALS: RESP 16
[2025-01-29 07:59] LABS: Basophils # (A) 0.04 X 10*3/uL (0.00-0.10); Basophils % (A) 0.5 %; Eosinophils # (A) 0.25 X 10*3/uL (0.04-0.35); HCT 44.3 % (39.6-50.0); HGB 13.9 g/dL (13.0-17.0); Lymphocytes # (A) 1.78 X 10*3/uL (0.90-5.00); MCH 30.5 pg (27.0-32.0); MCHC 31.4 g/dL (32.0-37.0); MCV 97.4 FL (80.0-97.0); Mean Platelet Volume 9.4 FL (9.5-12.2); Monocytes # (A) 0.98 X 10*3/uL (0.20-1.00); Monocytes % (A) 11.6 %; NRBC Per 100 WBC 0 X 10*3/uL (0.00-0.01); Neutrophils # (A) 5.39 X 10*3/uL (1.80-7.70); Neutrophils % (A) 63.5 %; Platelet Count 281 X 10*3/uL (140-440); RBC 4.55 X 10*6/uL (4.40-5.60); WBC 8.47 X 10*3/uL (4.50-10.00)
[2025-01-29 09:19] LABS: BUN/Creat Ratio 22.83 Ratio (12.00-20.00); Blood Urea Nitrogen 13.7 mg/dL (9.0-27.0); Calcium 9.5 mg/dL (8.7-10.3); Carbon Dioxide 25.7 mmol/L (21.6-31.8); Chloride 100 mmol/L (96-109); Glucose 109 mg/dL (70-110); Potassium 4.4 mmol/L (3.5-5.5); Sodium 138 mmol/L (135-145)
[2025-01-29 13:53] VITALS: BP 137/71; PULSE 70; TEMP 97.9
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
== END 2025-01-29 15:50 | disposition home health service (06) | DRG 178 ==
LOC: EC 05:34 → 4SSUR 07:05
PROVIDERS: ADMIT Hospitalist; ATTEND Hospitalist
DX: J69.0 Pneumonitis due to inhalation of food and vomit (principal); D84.9 Immunodeficiency, unspecified; J44.0 Chronic obstructive pulmonary disease with (acute) lower respiratory infection; F32.A Depression, unspecified; E78.5 Hyperlipidemia, unspecified; N40.0 Benign prostatic hyperplasia without lower urinary tract symptoms; Z79.51 Long term (current) use of inhaled steroids; Z79.82 Long term (current) use of aspirin; Z79.899 Other long term (current) drug therapy; Z87.891 Personal history of nicotine dependence; Z90.81 Acquired absence of spleen
CPT/HCPCS: 36415; 71045; 71046; 71250; 80048; 80053; 80202; 83735; 83880; 84145; 84484; 85025; 85379; 85610; 85730; 87040; 87070; 87636; 93005; 94640; 94760; 96365; 96366; 96367; 96368; 99285